=== PATIENT | male | born 1960 | race Caucasian/White ===

== ENCOUNTER 2023-04-16 00:05 | Emergency (ER) | payer BC, MEDICAID ==
[~2023-04-16] VITALS: Ht 177.8 cm; Wt 118.0 kg
[2023-04-16 00:08] VITALS: O2SAT 98
[2023-04-16 00:49] LABS: BASOPHILS % 0.9 % (0.0-2.0); EOSINOPHILS % 4.3 % (0.0-5.0); HEMATOCRIT. 40.6 % (42.0-52.0); HEMOGLOBIN. 13.6 g/dL (14.0-18.0); LYMPHOCYTES % 41.6 % (20.0-50.0); MEAN CORPUSCULAR HEMOGLOBIN 29.3 pg (28.0-32.0); MEAN CORPUSCULAR HGB CONC 33.6 g/dL (31.0-37.0); MEAN CORPUSCULAR VOLUME 87.3 fL (80.0-94.0); MEAN PLATELET VOLUME 9.4 fl (7.4-10.4); MONOCYTES % 8.3 % (2.0-8.0); NEUTROPHILS % 44.9 % (40.0-76.0); PLATELET 155 x1000/uL (130-400); RED BLOOD CELL COUNT 4.65 mill/uL (4.7-6.1); RED CELL DISTRIBUTION WIDTH 14.5 % (11.6-14.6); WHITE BLOOD COUNT 8.4 x1000/uL (4.5-11.0)
[2023-04-16 01:03] LABS: ALANINE AMINOTRANSFERASE 28 IU/L (10-49); ALBUMIN 4.7 g/dL (3.2-4.8); ASPARTATE AMINOTRANSFERASE 36 IU/L (<34); BILIRUBIN TOTAL 0.7 mg/dL (0.1-1.0); CARBON DIOXIDE 22 mEq/L (21-32); CHLORIDE 109 mEq/L (98-107); CREATININE 0.9 mg/dL (0.6-1.3); ETHANOL BLOOD 38 mg/dL (<10); GLUCOSE 92 mg/dL (70-105); POTASSIUM 3.6 mEq/L (3.5-5.1); PROTEIN TOTAL 7.9 g/dL (6.0-8.3); SODIUM 140 mEq/L (136-145); UREA NITROGEN BLOOD 13 mg/dL (9-23)
[2023-04-16 01:13] LABS: TROPONIN I HIGH SENSITIVITY < 4 ng/L (3.0-53)
[2023-04-16] MEDS: MORPHINE SULFATE 4 MG/ML CPJ (NOT FOR IM USE) IV STA (01:35)
[2023-04-16] MEDS: ONDANSETRON HCL 4MG/2ML INJ IV STA (01:35)
[2023-04-16] MEDS: ASPIRIN 81MG TABLET PO ONE (01:36)
[2023-04-16 01:40] LABS: CLARITY URINE CLEAR (CLEAR); COLOR URINE DARK YELLOW (YELLOW); GLUCOSE URINE NEGATIVE (NEGATIVE); KETONES URINE NEGATIVE (NEGATIVE); LEUKOCYTE ESTERASE URINE NEGATIVE (NEGATIVE); NITRITE URINE NEGATIVE (NEGATIVE); OCCULT BLOOD URINE NEGATIVE (NEGATIVE); PROTEIN URINE NEGATIVE (NEGATIVE); SPECIFIC GRAVITY URINE 1.028 (1.005-1.030)
[2023-04-16] MEDS: MORPHINE SULFATE 4 MG/ML CPJ (NOT FOR IM USE) IV NR (05:50)
[2023-04-16] MEDS: ONDANSETRON HCL 4MG/2ML INJ IV NR (05:50)
[2023-04-16 07:43] LABS: TROPONIN I HIGH SENSITIVITY < 4 ng/L (3.0-53)
[2023-04-16 10:00] VITALS: BP 123/82; PULSE 80; RESP 20; TEMP 98
== END 2023-04-16 10:00 | disposition home or self-care (01) ==
LOC: ER 00:05 → EDBD 00:05 → CANBEDREQ 07:59 → ER 10:00
DX: R07.89 Other chest pain (principal); I10 Essential (primary) hypertension; Z98.890 Other specified postprocedural states
CPT/HCPCS: 80053; 81003; 80320; 83880; 83690; 85025; 84484; 36415; 71045; 93005; 96374; 96375; 96376; 99285; J2405; J2270; G0480

== ENCOUNTER 2023-07-06 15:41 | Emergency (ER) | payer BC, MEDICAID ==
[~2023-07-06] VITALS: Ht 182.9 cm; Wt 113.0 kg
[2023-07-06] MEDS ORDERED: ASPI-1497 MT (15:52)
[2023-07-06 15:56] VITALS: O2SAT 99
[2023-07-06] MEDS ORDERED: lexapro (15:56)
[2023-07-06] MEDS: KETOROLAC 30MG/ML VIAL IM ONE (16:00)
[2023-07-06 16:22] VITALS: BP 138/84; PULSE 83; RESP 16; TEMP 97.7
== END 2023-07-06 16:30 | disposition home or self-care (01) ==
LOC: ER 15:41
DX: Z76.0 Encounter for issue of repeat prescription (principal); F41.9 Anxiety disorder, unspecified; F32.A Depression, unspecified; I10 Essential (primary) hypertension; F43.10 Post-traumatic stress disorder, unspecified; F15.90 Other stimulant use, unspecified, uncomplicated
CPT/HCPCS: 99283; 96372; J1885